=== PATIENT | female | born 1980 | race Two or more races ===

== ENCOUNTER 2017-12-16 00:56 | Emergency (ER) | payer SELFPAY ==
[~2017-12-16] VITALS: Ht 165.1 cm; Wt 67.1 kg
[2017-12-16 01:08] VITALS: BP 95/59
[2017-12-16] MEDS ORDERED: methylPREDNISolone SOD SUCC 125 MG/2 ML VL IM ONE (05:45)
[2017-12-16] MEDS ORDERED: cefTRIAXone SOD 1,000 MG VL IM ONE (05:45)
== END 2017-12-16 06:15 | disposition home or self-care (01) ==
LOC: ER 00:59
DX: H66.90 Otitis media, unspecified, unspecified ear (principal)
CPT/HCPCS: 96372; 99284; J0696; J2930